=== PATIENT | male | born 1970 | race Caucasian/White ===

== ENCOUNTER 2021-03-24 13:35 | Emergency (ER) | payer SELFPAY ==
[~2021-03-24] VITALS: Ht 172.7 cm; Wt 69.2 kg
[2021-03-24] MEDS ORDERED: BACITRACIN ZINC 0.9GM TP ONE ×2 (14:12→14:15)
[2021-03-24] MEDS ORDERED: TETANUS/DIPHTHERIA TOX ADULT 0.5 ML SYR ONE (14:12)
[2021-03-24] MEDS ORDERED: LIDOCAINE HCL 1% LOCAL INJ 20 ML VIAL INJ ONE (14:15)
[2021-03-24] MEDS ORDERED: TETANUS/DIPHTHERIA TOX ADULT 0.5 ML SYR IM ONE (14:15)
[2021-03-24] MEDS ORDERED: LIDOCAINE HCL 1% LOCAL INJ 20 ML VIAL ONE (14:16)
== END 2021-03-24 14:54 | disposition home or self-care (01) ==
LOC: FSED 13:47
DX: S01.01XA Laceration without foreign body of scalp, initial encounter (principal); W22.8XXA Striking against or struck by other objects, initial encounter; Y92.008 Other place in unspecified non-institutional (private) residence as the place of occurrence of the external cause; I10 Essential (primary) hypertension
CPT/HCPCS: 12001; 90471; 90714; 96372; 99282; J2001

== ENCOUNTER 2021-04-01 15:06 | Emergency (ER) | payer SELFPAY ==
[~2021-04-01] VITALS: Ht 172.7 cm; Wt 68.9 kg
== END 2021-04-01 15:46 | disposition home or self-care (01) ==
LOC: FSED 15:38
DX: Z48.02 Encounter for removal of sutures (principal)
CPT/HCPCS: 99282; S0630